=== PATIENT | female | born 1980 | race American Indian/Alaskan Native ===

== ENCOUNTER 2020-09-10 15:38 | Emergency (ER) | payer BC ==
[2020-09-10 18:18] VITALS: BP 144/83
[2020-09-10] MEDS ORDERED: FLUORESCEIN 1 MG STRIP OP ONE (20:41)
[2020-09-10] MEDS ORDERED: TETRACAINE 0.5% OPHTH SOLN 4ML OU STA (20:41)
--- NOTE | 2020-09-10 20:47 | Event Note ---
ED Screening Note Date of service: 09/10/20 Time: 20:45 ED Screening Note: 39-year-old female presents to the ER today with complaints of redness to both of her eyes. Patient states that around 7 AM this morning was driving to work in [place] she started having a headache, and also pain in her eyes. He states that when she got to work, she went to the bathroom and when she looked at her she noticed that she had red spots in her eye. She denies any injury to her eye. She states that her eye has not been itching. She denies any increased tearing or mucus drainage from the eye. She denies any worsening blurry vision as she does with glasses. Is not any blood thinners. She denies any head injury. She denies any alcohol intake. She states that she has not been vomiting coughing sneezing or anything strenuous. This initial assessment/diagnostic orders/clinical plan/treatment(s) is/are subject to change based on patients health status, clinical progression and re- assessment by fellow clinical providers in the ED. Further treatment and workup at subsequent clinical providers discretion. Patient/guardian urged not to elope from the ED as their condition may be serious if not clinically assessed and managed. Initial orders include: Eye exam/CBC
[2020-09-10 21:24] LABS: Basophils % (Auto) 0.4 % (0.0-1.8); Eosinophils # (Auto) 0.1 K/mm3 (0.0-0.4); Eosinophils % (Auto) 0.8 % (0.0-4.3); Hematocrit 37.7 % (30.3-42.9); Lymphocytes # (Auto) 3.2 K/mm3 (1.2-5.4); Mean Corpuscular HGB Conc 35 % (30-34); Mean Corpuscular Volume 86 fl (79-97); Monocytes # (Auto) 0.6 K/mm3 (0.0-0.8); Monocytes % (Auto) 7.5 % (0.0-7.3); Platelet Count 333 K/mm3 (140-440); Red Blood Count 4.36 M/mm3 (3.65-5.03); Red Cell Distribution Width 13.5 % (13.2-15.2)
[2020-09-10] MEDS ORDERED: HYDROcodone/ACETAMINOPHEN 5-325 MG TAB PO ONE (21:41)
[2020-09-10] MEDS ORDERED: dexAMETHasone 20 MG/5 ML VIAL IV ONE (22:18)
[2020-09-10] MEDS ORDERED: METOCLOPRAMIDE 10 MG/2 ML INJ IV ONE (22:18)
[2020-09-10] MEDS ORDERED: diphenhydrAMINE 50 MG/ML VIAL IV ONE (22:18)
--- NOTE | 2020-09-10 22:23 | Cat Scan Report ---
CT HEAD WITHOUT CONTRAST INDICATION / CLINICAL INFORMATION: Acute severe headache w/ bilateral sub conjunc hemor. TECHNIQUE: All CT scans at this location are performed using CT dose reduction for ALARA by means of automated exposure control. COMPARISON: None available. FINDINGS: HEMORRHAGE: None. EXTRA-AXIAL SPACES: Normal in size and morphology for the patient's age. VENTRICULAR SYSTEM: Normal in size and morphology for the patient's age. CEREBRAL PARENCHYMA: No significant abnormality. No acute territorial infarct. MIDLINE SHIFT / HERNIATION: None. CEREBELLUM / BRAINSTEM: No significant abnormality. ORBITS: Normal as visualized. SOFT TISSUES: No significant abnormality. SKULL: No significant abnormality. PARANASAL SINUSES / MASTOID AIR CELLS: Normal as visualized. ADDITIONAL FINDINGS: None. IMPRESSION: 1. No acute intracranial abnormality. Signer Name: Raghav Li MD Signed: 09/10/2020 10:19 PM Workstation Name: [id number]
[2020-09-10] MEDS ORDERED: SODIUM CHLORIDE 0.9% 1000 ML 1,000 ML IV ONE (22:42)
[2020-09-10] MEDS ORDERED: MAGNESIUM SULFATE 2 GM/50 ML BAG IV ONE (22:44)
--- NOTE | 2020-09-10 23:25 | Emergency Department Report ---
ED General Adult HPI - General Chief complaint: Eye Problems Stated complaint: BLOOD IN BOTH EYES Time Seen by Provider: 09/10/20 20:45 Source: patient Mode of arrival: Ambulatory Limitations: No Limitations - History of Present Illness Initial comments: 39-year-old -[place] female presents to the ER today with complaints of redness to both of her eyes. Patient states that around 7 AM this morning was driving to work in [place] she started having a headache, and also pain in her eyes. He states that when she got to work, she went to the bathroom and when she looked at her she noticed that she had red spots in her eye. She denies any injury to her eye. She states that her eye has not been itching. She denies any increased tearing or mucus drainage from the eye. She denies any worsening blurry vision as she does with glasses. Is not any blood thinners. She denies any head injury. She denies any alcohol intake. She states that she has not been vomiting coughing sneezing or anything strenuous. No past medical history per patient. Patient states headache is severe and rates it as 10/10 in severity. She denies history of migraines or vision changes, however she admits to photophobia. Patient also denies any numbness/tingling/weakness in her limbs, difficulty with speech/ambulation, dizziness, confusion, or memory loss. Severity scale (0 -10): 4 - Related Data Previous Rx's Medication Instructions Recorded Last Taken Type Prednisone [predniSONE 10 mg 10 mg PO .TAPER #1 tab.ds.pk 09/11/20 Unknown Rx (6-Day Pack, 21 Tabs)] Allergies Allergy/AdvReac Type Severity Reaction Status Date / Time iodine Allergy Anaphylaxis Verified 09/10/20 18:16 ED Review of Systems ROS: Stated complaint: BLOOD IN BOTH EYES Other details as noted in HPI Constitutional: denies: chills, diaphoresis, fever, malaise, weakness Respiratory: denies: cough, shortness of breath Cardiovascular: denies: chest pain Gastrointestinal: denies: abdominal pain, nausea, vomiting Neurological: headache. denies: weakness, numbness, paresthesias ED Past Medical Hx - Past Medical History Previous Medical History?: Yes Hx Asthma: Yes - Surgical History Past Surgical History?: Yes Additional Surgical History: PEDICURIST - Medications Home Medications: Home Medications Medication Instructions Recorded Confirmed Last Taken Type Prednisone [predniSONE 10 mg 10 mg PO .TAPER #1 tab.ds.pk 09/11/20 Unknown Rx (6-Day Pack, 21 Tabs)] ED Physical Exam - General Limitations: No Limitations General appearance: alert, in no apparent distress, obese - Head Head exam: Present: atraumatic, normocephalic - Eye Eye exam: Present: PERRL, EOMI. Absent: scleral icterus - Expanded Eye Exam Expanded Sclera/Conjunctival: Hemorrhage: Bilateral (Subconjunctival) - ENT ENT exam: Present: mucous membranes moist - Neck Neck exam: Present: normal inspection, full ROM - Respiratory Respiratory exam: Present: normal lung sounds bilaterally. Absent: respiratory distress - Cardiovascular Cardiovascular Exam: Present: regular rate, normal rhythm. Absent: systolic murmur, diastolic murmur, rubs, gallop - Extremities Exam Extremities exam: Present: full ROM - Neurological Exam Neurological exam: Present: alert, oriented X3, CN II-XII intact, normal gait. Absent: motor sensory deficit - Expanded Neurological Exam Expanded Cerebellar function: Finger to Nose: Normal, Heel to [place]: Normal, [place]: Normal Sensory exam: Upper Extremity Light Touch: Normal, Lower Extremity Light Touch: Normal Motor strength exam: RUE: 5, LUE: 5, RLE: 5, LLE: 5 Best Eye Response (Debbie): (4) open spontaneously Best Motor Response ([place]): (6) obeys commands Best Verbal Response (Debbie): (5) oriented [place] Total: 15 - Psychiatric Psychiatric exam: Present: normal affect, normal mood - Skin Skin exam: Present: warm, dry, intact, normal color. Absent: rash, cyanosis, diaphoretic ED Course Vital Signs 09/10/20 09/11/20 18:16 02:44 Temperature 99.3 F Pulse Rate 87 82 Respiratory 20 17 Rate Blood Pressure 144/83 O2 Sat by Pulse 98 99 Oximetry ED Medical Decision Making - Lab Data Result diagrams: 09/10/20 20:51 09/10/20 23:07 Lab Results 09/10/20 09/10/20 Range/Units 20:51 23:07 WBC 8.2 (4.5-11.0) K/mm3 RBC 4.36 (3.65-5.03) M/mm3 Hgb 13.0 (10.1-14.3) gm/dl Hct 37.7 (30.3-42.9) % MCV 86 (79-97) fl MCH 30 (28-32) pg MCHC 35 H (30-34) % RDW 13.5 (13.2-15.2) % Plt Count 333 (140-440) K/mm3 Lymph % (Auto) 39.0 H (13.4-35.0) % [place] % (Auto) 7.5 H (0.0-7.3) % Eos % (Auto) 0.8 (0.0-4.3) % Baso % (Auto) 0.4 (0.0-1.8) % Lymph # (Auto) 3.2 (1.2-5.4) K/mm3 [place] # (Auto) 0.6 (0.0-0.8) K/mm3 Eos # (Auto) 0.1 (0.0-0.4) K/mm3 Baso # (Auto) 0.0 (0.0-0.1) K/mm3 Seg Neutrophils % 52.3 (40.0-70.0) % Seg Neutrophils # 4.3 (1.8-7.7) K/mm3 Sodium 139 (137-145) mmol/L Potassium 3.6 (3.6-5.0) mmol/L Chloride 100.2 (98-107) mmol/L Carbon Dioxide 27 (22-30) mmol/L Anion Gap 15 mmol/L BUN 10 (7-17) mg/dL Creatinine 0.7 (0.6-1.2) mg/dL Estimated GFR > 60 ml/min BUN/Creatinine Ratio 14 % Glucose 106 H (65-100) mg/dL Calcium 9.5 (8.4-10.2) mg/dL Total Bilirubin 0.20 (0.1-1.2) mg/dL AST 17 (5-40) units/L ALT 18 (7-56) units/L Alkaline Phosphatase 70 (35-129) units/L Total Protein 7.7 (6.3-8.2) g/dL Albumin 4.4 (3.9-5) g/dL Albumin/Globulin Ratio 1.3 % - Radiology Data Radiology results: report reviewed CT HEAD WITHOUT CONTRAST INDICATION / CLINICAL INFORMATION: Acute severe headache w/ bilateral sub conjunc hemor. TECHNIQUE: All CT scans at this location are performed using CT dose reduction for ALARA by means of automated exposure control. COMPARISON: None available. FINDINGS: HEMORRHAGE: None. EXTRA-AXIAL SPACES: Normal in size and morphology for the patient's age. VENTRICULAR SYSTEM: Normal in size and morphology for the patient's age. CEREBRAL PARENCHYMA: No significant abnormality. No acute territorial infarct. MIDLINE SHIFT / HERNIATION: None. CEREBELLUM / BRAINSTEM: No significant abnormality. ORBITS: Normal as visualized. SOFT TISSUES: No significant abnormality. SKULL: No significant abnormality. PARANASAL SINUSES / MASTOID AIR CELLS: Normal as visualized. ADDITIONAL FINDINGS: None. IMPRESSION: 1. No acute intracranial abnormality. - Medical Decision Making 39-year-old -[place] female presents to the ER today with complaints of redness to both of her eyes. Patient states that around 7 AM this morning was driving to work in [place] she started having a headache, and also pain in her eyes. He states that when she got to work, she went to the bathroom and when she looked at her she noticed that she had red spots in her eye. She denies any injury to her eye. She states that her eye has not been itching. She denies any increased tearing or mucus drainage from the eye. She denies any worsening blurry vision as she does with glasses. Is not any blood thinners. She denies any head injury. She denies any alcohol intake. She states that she has not been vomiting coughing sneezing or anything strenuous. No past medical history per patient. Patient states headache is severe and rates it as 10/10 in severity. She denies history of migraines or vision changes, however she admits to photophobia. Patient also denies any numbness/tingling/weakness in her limbs, difficulty with speech/ambulation, dizziness, confusion, or memory loss. Neuro exam is normal. CT head is normal. Patient given Decadron, Reglan/Benadryl, and hydrocodone. Headache has improved but is not resolved at this time.Discussed patient in detail with Dr. Johnson who agree with CTA of head. CTA of head is negative for any acute abnormalities. Patient states her headache is now resolved with Toradol. Recommend patient follows up with primary care in 2 to 3 days. She is well-appearing and remains neurologically intact. Her vitals are within normal limits. Patient is stable for discharge home. Discussed in great detail signs and symptoms that should prompt immediate return to the emergency department with patient who verbalizes understanding. Critical care attestation.: If time is entered above; I have spent that time in minutes in the direct care of this critically ill patient, excluding procedure time. ED Disposition Clinical Impression: Headache, acute, Subconjunctival hemorrhage of both eyes Disposition: DC- TO HOME OR SELFCARE Is pt being admited?: No Condition: Stable Instructions: General Headache Without Cause, Subconjunctival Hemorrhage Prescriptions: Prednisone [predniSONE 10 mg (6-Day Pack, 21 Tabs)] 10 mg PO .TAPER #1 tab.ds.pk Referrals: PRIMARY CARE, [Primary Care Provider] - 2-3 Days [facility] [Provider Group] - 2-3 Days Forms: Work/School Release Form(ED)
[2020-09-10 23:55] LABS: Alanine Aminotransferase 18 units/L (7-56); Albumin 4.4 g/dL (3.9-5); Blood Urea Nitrogen 10 mg/dL (7-17); Calcium 9.5 mg/dL (8.4-10.2); Hemolysis Index 2
[2020-09-10 23:57] LABS: BUN/Creatinine Ratio 14
--- NOTE | 2020-09-11 01:55 | Cat Scan Report ---
. CT angio head INDICATION / CLINICAL INFORMATION: 39 years Female; Acute severe headache w/ bilateral subconjunctival hemorrage. TECHNIQUE: Thin cut axial images obtained through the head during IV bolus contrast administration. S agittal, coronal, and 3 plane MIP reconstructions performed by the technologist. NASCET type criteria used evaluate stenoses. Automated exposure control utilized for radiation reduction purposes. COMPARISON: None available. FINDINGS: INTERNAL CAROTID ARTERIES: No significant narrowing appreciated. VERTEBROBASILAR SYSTEM: No significant narrowing appreciated. DISTAL BRANCHES: Distal branches of the anterior, middle, and posterior cerebral arteries are fairly symmetric in appearance and number. ANEURYSM: None identified. ADDITIONAL FINDINGS: Mucous retention cyst/polyp seen in the right maxillary antrum and minimally in the left sphenoid sinus. IMPRESSION: No significant abnormality on this CTA of the head. Signer Name: Sudhir Crespo MD, III Signed: 09/11/2020 1:50 AM Workstation Name: [id number]
[2020-09-11] MEDS ORDERED: KETOROLAC 30 MG/1 ML INJ IV ONE (01:56)
== END 2020-09-11 02:44 | disposition home or self-care (01) ==
LOC: ED 15:38
DX: H11.33 Conjunctival hemorrhage, bilateral (principal); R51.9 Headache, unspecified; J45.909 Unspecified asthma, uncomplicated; Z91.041 Radiographic dye allergy status; Z79.899 Other long term (current) drug therapy; Z98.890 Other specified postprocedural states
CPT/HCPCS: 36415; 70450; 70496; 80053; 85025; 96365; 96375; 99284; J1100; J1200; J1885; J2765; J3475; J7030; Q9967